=== PATIENT | female | born 1960 | race Caucasian/White ===

== ENCOUNTER 2018-01-16 11:54 | Emergency (ER) | payer BC ==
--- NOTE | 2018-01-16 12:20 | EDPHY ---
H & P Stated Complaint: fall R foot injury Source: Patient Exam Limitations: No limitations - Personal History Current Tetanus/Diphtheria Vaccine: Yes Current Tetanus Diphtheria and Acellular Pertussis (TDAP): Yes - Medical/Surgical History Hx Asthma: No Hx Chronic Respiratory Disease: No Hx Diabetes: No Hx Cardiac Disease: No Hx Renal Disease: No Hx Cirrhosis: No Hx Alcoholism: No Hx HIV/AIDS: No Hx Splenectomy or Spleen Trauma: No Other PMH: hysterectomy, sandy, appy, kidney stones - Social History Smoking Status: Never smoked Time Seen by Provider: 01/16/18 12:19 HPI/ROS: HPI: This is a 57-year-old female who presents with Chief Complaint: Fall, right foot injury Location: Right foot Quality: Injury Duration: 2 hr prior to arrival Signs and Symptoms: No bleeding, no radiation, no numbness, no weakness, no tingling, no incontinence, + decreased range of motion, + swelling, + pain, no fever Timing: Acute Severity: 03/11 Context: Patient reports that she was walking through aisles of chairs prior to finding a seat for her grandson's graduation this morning. As she was walking past a chair she did not realize there was a ledge. Her right foot slipped off of the ledge and inverted causing immediate, moderate, constant pain at the top of her foot. Patient reports that she was able to hobble to her chair. She placed an ice pack on and elevated through the 1 hr long ceremony. At the end of the ceremony, patient attempted to stand up and was unable to bear weight on her right foot secondary to moderate, constant, nonradiating pain at the top of her ft. She denies any ankle pain/paresthesias/ weakness. She reports decreased range of motion secondary to pain primarily flexion. No prior history of ankle sprains. Modifying Factors: Ice pack Comment: ROS: see HPI Constitutional: No fever, no chills, no weight loss Eyes: No blurred vision Respiratory: No shortness of breath, no cough Cardiovascular: No chest pain Gastrointestinal: No nausea, no vomiting no diarrhea Genitourinary: No dysuria Extremities: No myalgias Neurologic: No weakness, no numbness Skin: No rashes Hematologic: No bruising, no bleeding MEDICAL/SURGICAL/SOCIAL HISTORY: Medical history: Kidney stones Surgical history: hysterectomy, cholecystectomy, appendectomy Social history: . CONSTITUTIONAL: Extremely polite and cooperative adult white female, ice pack noted on right foot, awake and alert, no obvious distress HEENT: Atraumatic and normocephalic, wearing glasses. EXTREMITIES: 2/2 pulses, strength 5/5, right Ankle: Plantar flexion to 30, dorsiflexion to 10. Foot inversion to 15 degrees. Mild tenderness/swelling Anterior talofibular ligament. No tenderness/swelling Calcaneofibular ligament , no tenderness/swelling posterior talofibular ligament, no tenderness/swelling posterior inferior tibiofibular ligament. Tenderness and mild swelling noted at the base of all 5 metatarsal in the midfoot. Achilles tendon intact. no deformities, no clubbing, no cyanosis or edema. NEUROLOGICAL: no focal neuro deficits. GCS 15. SKIN: Warm and dry, no erythema. no rash. Good capillary refill. (Josefa Dueñas) Constitutional: Initial Vital Signs Temperature (C) 36.9 C 01/16/18 12:12 Heart Rate 86 01/16/18 12:12 Respiratory Rate 16 01/16/18 12:12 Blood Pressure 178/117 H 01/16/18 12:12 O2 Sat (%) 94 01/16/18 12:12 O2 Delivery Mode Room Air Allergies/Adverse Reactions: Sulfa (Sulfonamide Antibiotics) Allergy (Verified 01/16/18 12:12) Home Medications: Medication Instructions Recorded NK [No Known Home Meds] 01/16/18 Medical Decision Making - Diagnostics Imaging Results: Imaging Impressions Foot X-Ray 01/16/18 12:24 Impression: No evidence for acute osseous abnormality right foot. Procedures: Procedure: Splint placement. A right walking boot was applied by the Emergency Room systems technician. After application of the splint I returned and re-examined the patient. The splint was adequately immobilizing the joint and distal to the splint the patient's circulation and sensation was intact. (Josefa Dueñas) ED Course/Re-evaluation: Right foot x-ray ordered. Ice pack refreshed and placed on the top of the foot. X-ray my read shows no fracture, mild soft tissue swelling noted over the 5th metatarsal where she is tender Patient is very reluctant to bear weight; placed in right walking boot and given crutches to aid ambulation advised RICE No signs of neurovascular compromise/tenting of skin/compartment syndrome/ extremities and joints examined above and below area of concern and are neurovascularly intact. This patient was seen under the supervision of my secondary supervising physician. I evaluated care for this patient independently. Discussed this patient with Dr. Fulton. (Josefa Dueñas) Differential Diagnosis: Ankle injury differential diagnosis includes but is not limited to tibia fracture, fibula fracture, metatarsal fracture, LisFranc fracture or sprain. (Josefa Dueñas) Departure - Departure Disposition: Home, Routine, Self-Care Clinical Impression: Right foot sprain Qualifiers: Encounter type: initial encounter Qualified Code(s): S93.601A - Unspecified sprain of right foot, initial encounter Condition: Good Instructions: Foot Sprain (ED) Additional Instructions: Wear the walking boot while out of bed until pain free. Use crutches to aid ambulation. Start with toe-touch weight-bearing status and slowly advance as tolerated. Take Tylenol 650 mg every 4 hours and/or Ibuprofen 600 mg every 8 hours with food as needed for pain. Apply ice for 30 minutes at a time; 2-3 times per day for the next 1-2 days. The x-rays obtained in the emergency department today demonstrate no evidence of an obvious fracture. Sometimes fractures are not obvious on the initial set of x-rays performed in the ED. For this reason, you should have repeat x-rays performed in 7-10 days if you are having any pain exclude the possibility of an occult fracture. Referrals: PCP Not In,Pritesh [Medical Doctor] - As per Instructions Bobby Ho MD [Medical Doctor] - 5-7 days, if not improved Stand Alone Forms: Work Excuse
[2018-01-16 13:24] VITALS: BP 169/107
== END 2018-01-16 13:24 | disposition home or self-care (01) ==
DX: S93.601A Unspecified sprain of right foot, initial encounter (principal); W18.39XA Other fall on same level, initial encounter
CPT/HCPCS: L4386